=== PATIENT | female | born 1945 | race Caucasian/White ===

== ENCOUNTER → 2016-07-17 | Outpatient (REF) | payer MEDICARE | LOC: M LAB REF 16:45 | PROVIDERS: ATTEND Surgery | DX: C44.42 Squamous cell carcinoma of skin of scalp and neck (principal) ==

== ENCOUNTER → 2016-09-18 | Outpatient (REF) | payer MEDICARE | LOC: M LAB REF 16:46 | PROVIDERS: ATTEND Surgery | DX: C44.41 Basal cell carcinoma of skin of scalp and neck (principal) ==

== ENCOUNTER → 2016-09-25 | Outpatient (REF) | payer MEDICARE ==
[2016-09-25 17:42] LABS: ALBUMIN 3.7 GM/DL (3.2-5.2); ALBUMIN/GLOBULIN RATIO 1.09 (1.00-1.93); ALKALINE PHOSPHATASE 44 U/L (45-117); ALT/SGPT 28 U/L (12-78); ANION GAP 7 MEQ/L (8-16); AST/SGOT 22 U/L (15-37); BILIRUBIN,TOTAL 0.4 MG/DL (0.2-1.0); BLOOD UREA NITROGEN 16 MG/DL (7-18); CALCIUM LEVEL 8.4 MG/DL (8.8-10.2); CARBON DIOXIDE LEVEL 33 MEQ/L (21-32); CHLORIDE LEVEL 98 MEQ/L (98-107); CHOLESTEROL LEVEL 232 MG/DL (<200); CREATININE FOR GFR 0.57 MG/DL (0.55-1.02); GLOMERULAR FILTRATION RATE > 60.0 (>45); GLUCOSE, FASTING 84 MG/DL (80-110); POTASSIUM SERUM 3.9 MEQ/L (3.5-5.1); SODIUM LEVEL 138 MEQ/L (136-145); T UPTAKE 32 % (30-39); THYROXINE (T4) 6.9 UG/DL (4.5-12.0); TOTAL PROTEIN 7.1 GM/DL (6.4-8.2); TRIGLYCERIDES LEVEL 93 MG/DL (<150); URIC ACID 2.6 MG/DL (2.6-6.0)
[2016-09-25 17:51] LABS: MEAN CORPUSCULAR HEMOGLOBIN 33.3 pg (27.0-33.0); MEAN CORPUSCULAR HGB CONC 33.1 g/dl (32.0-36.5); MEAN CORPUSCULAR VOLUME 100.4 fl (80.0-96.0); PLATELET COUNT, AUTOMATED 228 k/mm3 (150-450); RED CELL DISTRIBUTION WIDTH 12.5 % (11.5-14.5); WHITE BLOOD COUNT 3.4 K/mm3 (4.0-10.0)
[2016-09-25 21:53] LABS: BASOPHILS 1 % (0-4); EOSINOPHILS 6 % (0-5)
[2016-09-25 21:54] LABS: TOXIC VACUOLATION 1+
== END ==
LOC: M LAB REF 16:42
DX: Z00.00 Encounter for general adult medical examination without abnormal findings (principal); Z79.899 Other long term (current) drug therapy

== ENCOUNTER → 2022-06-12 | Outpatient (CLI) | payer MEDICARE | LOC: M RAD 14:29 | PROVIDERS: ATTEND Physician Assistant | DX: L97.812 Non-pressure chronic ulcer of other part of right lower leg with fat layer exposed (principal) ==

== ENCOUNTER → 2022-06-25 | Outpatient (POV) | payer MEDICARE ==
[~2022-06-25] VITALS: Ht 165.1 cm; Wt 65.0 kg
[2022-06-25 13:30] VITALS: BP 148/86
== END ==
LOC: M IRPOV 13:01
PROVIDERS: ATTEND Radiology Diagnostic Radiology
DX: L97.819 Non-pressure chronic ulcer of other part of right lower leg with unspecified severity (principal); E78.5 Hyperlipidemia, unspecified; I10 Essential (primary) hypertension; R60.0 Localized edema; Z79.82 Long term (current) use of aspirin; Z82.49 Family history of ischemic heart disease and other diseases of the circulatory system; Z90.710 Acquired absence of both cervix and uterus

== ENCOUNTER → 2022-07-12 | Outpatient (REF) | payer MEDICARE | LOC: M SFHCWOUN 17:00 | PROVIDERS: ATTEND Physician Assistant | DX: L97.812 Non-pressure chronic ulcer of other part of right lower leg with fat layer exposed (principal) ==

== ENCOUNTER → 2022-07-17 | Outpatient (CLI) | payer MEDICARE | LOC: M RAD 12:46 | PROVIDERS: ATTEND Radiology Diagnostic Radiology | DX: I87.2 Venous insufficiency (chronic) (peripheral) (principal) ==

== ENCOUNTER → 2022-08-06 | Outpatient (POV) | payer MEDICARE ==
[~2022-08-06] VITALS: Ht 157.5 cm; Wt 64.5 kg
[2022-08-06 10:20] VITALS: BP 130/90
== END ==
LOC: M IRPOV 10:07
PROVIDERS: ATTEND Radiology Diagnostic Radiology
DX: L97.819 Non-pressure chronic ulcer of other part of right lower leg with unspecified severity (principal); M79.604 Pain in right leg

== ENCOUNTER → 2022-09-18 | Outpatient (REF) | payer MEDICARE | LOC: M SFHCDERM 14:15 | PROVIDERS: ATTEND Dermatology | DX: L08.0 Pyoderma (principal) ==

== ENCOUNTER → 2022-09-27 | Outpatient (REF) | payer MEDICARE | LOC: M SFHCDERM 17:25 | PROVIDERS: ATTEND Dermatology | DX: L08.0 Pyoderma (principal) ==

== ENCOUNTER → 2022-10-04 | Outpatient (REF) | payer MEDICARE | LOC: M SFHCDERM 16:36 | PROVIDERS: ATTEND Dermatology | DX: L08.0 Pyoderma (principal) ==

== ENCOUNTER → 2022-10-08 | Outpatient (REF) | payer MEDICARE | LOC: M SFHCDERM 08:31 | PROVIDERS: ATTEND Dermatology | DX: Z53.9 Procedure and treatment not carried out, unspecified reason (principal) ==

== ENCOUNTER → 2022-10-11 | Outpatient (REF) | payer MEDICARE | LOC: M SFHCDERM 17:28 | PROVIDERS: ATTEND Dermatology | DX: L08.0 Pyoderma (principal) ==

== ENCOUNTER → 2022-12-20 | Outpatient (REF) | payer MEDICARE | LOC: M SFHCDERM 17:26 | PROVIDERS: ATTEND Dermatology | DX: L08.0 Pyoderma (principal) ==

== ENCOUNTER → 2022-12-31 | Outpatient (CLI) | payer MEDICARE ==
[~2022-12-31] MED LIST: ISOVUE-370 76% 100ML VIAL As Ordered ONE
== END ==
LOC: M RAD 08:09
PROVIDERS: ATTEND Surgery Vascular Surgery
DX: I70.299 Other atherosclerosis of native arteries of extremities, unspecified extremity (principal); L97.909 Non-pressure chronic ulcer of unspecified part of unspecified lower leg with unspecified severity
CPT/HCPCS: 75635; Q9967

== ENCOUNTER → 2023-01-09 | Outpatient (REF) | payer MEDICARE | LOC: M SFHCWAGY 17:36 | PROVIDERS: ATTEND Nurse Practitioner Family | DX: Z12.4 Encounter for screening for malignant neoplasm of cervix (principal); R87.5 Abnormal microbiological findings in specimens from female genital organs | CPT/HCPCS: 87624; G0123 ==

== ENCOUNTER → 2023-02-04 | Outpatient (REF) | payer MEDICARE | LOC: M SFHCDERM 08:21 | PROVIDERS: ATTEND Dermatology | DX: L08.0 Pyoderma (principal); Z79.899 Other long term (current) drug therapy; Z53.9 Procedure and treatment not carried out, unspecified reason ==

== ENCOUNTER → 2023-02-14 | Outpatient (CLI) | payer MEDICARE | LOC: M WUC 15:56 | PROVIDERS: ATTEND Surgery | DX: L97.915 Non-pressure chronic ulcer of unspecified part of right lower leg with muscle involvement without evidence of necrosis (principal); L88 Pyoderma gangrenosum; I87.331 Chronic venous hypertension (idiopathic) with ulcer and inflammation of right lower extremity; I10 Essential (primary) hypertension; M19.90 Unspecified osteoarthritis, unspecified site; M86.161 Other acute osteomyelitis, right tibia and fibula ==

== ENCOUNTER → 2023-03-13 | Outpatient (CLI) | payer MEDICARE | LOC: M PLAIMG 13:51 | PROVIDERS: ATTEND Surgery | DX: L97.915 Non-pressure chronic ulcer of unspecified part of right lower leg with muscle involvement without evidence of necrosis (principal); L88 Pyoderma gangrenosum; I87.331 Chronic venous hypertension (idiopathic) with ulcer and inflammation of right lower extremity; I10 Essential (primary) hypertension ==

== ENCOUNTER 2023-04-01 12:09 | Outpatient (CLI) | payer MEDICARE ==
[~2023-04-01] VITALS: Ht 165.1 cm; Wt 69.0 kg
[2023-04-01] MEDS ORDERED: ACETAMINOPHEN 650MG PO PRIOR TO INFUSION PO ONE (12:30)
[2023-04-01] MEDS ORDERED: NS 1,000 ML IV SCH (12:30)
[2023-04-01] MEDS ORDERED: diphenhydrAMINE 50MG PO PRIOR TO INFUSION PO ONE (12:30)
[2023-04-01 12:45] VITALS: BP 109/55; O2SAT 96
[2023-04-01] MEDS ORDERED: inFLIXimab INJECTION 300 MG in NS 220 ML IV ONE (13:00)
[2023-04-01 13:45] VITALS: BP 160/90; O2SAT 98
[2023-04-01 14:15] VITALS: BP 158/88; O2SAT 98
== END 2023-04-01 15:45 ==
LOC: M INFU 12:09
PROVIDERS: ATTEND Dermatology
DX: L88 Pyoderma gangrenosum (principal); Z88.5 Allergy status to narcotic agent
CPT/HCPCS: 96413; 96415; J1745

== ENCOUNTER 2023-04-15 12:30 | Outpatient (CLI) | payer MEDICARE ==
[~2023-04-15] VITALS: Ht 165.1 cm; Wt 66.0 kg
[~2023-04-15 12:30] MED LIST changes: +ACETAMINOPHEN 650MG PO PRIOR TO INFUSION PO ONE; -ISOVUE-370 76% 100ML VIAL As Ordered ONE; +NS 1,000 ML IV SCH; +diphenhydrAMINE 50MG PO PRIOR TO INFUSION PO ONE; +inFLIXimab INJECTION 300 MG in NS 220 ML IV ONE
[2023-04-15 13:49] VITALS: BP 156/82; TEMP 98.4; O2SAT 100
[2023-04-15 16:00] VITALS: BP 158/62; O2SAT 98
== END 2023-04-15 16:00 | disposition home or self-care (01) ==
LOC: M INFU 12:30
PROVIDERS: ATTEND Dermatology
DX: L88 Pyoderma gangrenosum (principal); Z88.5 Allergy status to narcotic agent
CPT/HCPCS: 96413; 96415; J1745

== ENCOUNTER → 2023-04-25 | Outpatient (CLI) | payer MEDICARE | LOC: M RAD 17:02 | PROVIDERS: ATTEND Dermatology | DX: L08.0 Pyoderma (principal) ==

== ENCOUNTER → 2023-05-09 | Outpatient (CLI) | payer MEDICARE ==
[~2023-05-09] MED LIST changes: -ACETAMINOPHEN 650MG PO PRIOR TO INFUSION PO ONE; +GASTROGRAFIN SOLUTION 30ML As Ordered ONE; +ISOVUE-370 76% 100ML VIAL As Ordered ONE; -NS 1,000 ML IV SCH; -diphenhydrAMINE 50MG PO PRIOR TO INFUSION PO ONE; -inFLIXimab INJECTION 300 MG in NS 220 ML IV ONE
== END ==
LOC: M RAD 12:34
PROVIDERS: ATTEND Dermatology
DX: L08.0 Pyoderma (principal)
CPT/HCPCS: 74178; Q9963; Q9967

== ENCOUNTER 2023-05-13 15:07 | Outpatient (CLI) | payer MEDICARE ==
[~2023-05-13] VITALS: Ht 165.1 cm; Wt 66.0 kg
[2023-05-13 15:10] VITALS: BP 129/62; O2SAT 96
[2023-05-13] MEDS ORDERED: NS 1,000 ML IV SCH (16:00)
[2023-05-13] MEDS ORDERED: diphenhydrAMINE 50MG PO PRIOR TO INFUSION PO ONE (16:00)
[2023-05-13] MEDS ORDERED: ACETAMINOPHEN 650MG PO PRIOR TO INFUSION PO ONE (16:00)
[2023-05-13] MEDS ORDERED: inFLIXimab INJECTION 300 MG in NS 220 ML IV ONE (16:00)
[2023-05-13 17:51] VITALS: BP 142/78; O2SAT 96
== END 2023-05-13 18:00 | disposition home or self-care (01) ==
LOC: M INFU 15:07
PROVIDERS: ATTEND Dermatology
DX: L88 Pyoderma gangrenosum (principal); Z88.5 Allergy status to narcotic agent
CPT/HCPCS: 96413; 96415; J1745

== ENCOUNTER → 2023-06-13 | Outpatient (REF) | payer MEDICARE | LOC: M SFHCDERM 16:51 | PROVIDERS: ATTEND Dermatology | DX: R60.0 Localized edema (principal) ==

== ENCOUNTER 2023-06-24 12:20 | Outpatient (CLI) | payer MEDICARE ==
[2023-06-24 12:20] VITALS: BP 168/82; O2SAT 100
[2023-06-24] MEDS: NS 1,000 ML IV SCH (13:00)
[2023-06-24] MEDS: dexameTHASONE 20 MG IV PRIOR TO INFUSION IV ONE (13:03)
[2023-06-24] MEDS: diphenhydrAMINE 25MG PO PRIOR TO INFUSION PO ONE (13:04)
[2023-06-24] MEDS: ACETAMINOPHEN 650MG PO PRIOR TO INFUSION PO ONE (13:04)
[2023-06-24] MEDS: inFLIXimab INJECTION 300 MG in NS 220 ML IV ONE (13:15)
[2023-06-24 13:30] VITALS: BP 150/70; O2SAT 100
[2023-06-24 15:30] VITALS: BP 168/70; O2SAT 100
== END 2023-06-24 15:30 ==
LOC: M INFU 12:20
PROVIDERS: ATTEND Dermatology
DX: L88 Pyoderma gangrenosum (principal); Z88.5 Allergy status to narcotic agent
CPT/HCPCS: 96413; 96415; J1745

== ENCOUNTER 2023-09-16 12:55 | Outpatient (CLI) | payer MEDICARE ==
[~2023-09-16] VITALS: Ht 165.1 cm; Wt 69.0 kg
[2023-09-16] MEDS: dexameTHASONE 20 MG IV PRIOR TO INFUSION IV ONE (12:30)
[2023-09-16 12:55] VITALS: BP 150/76; O2SAT 100
[~2023-09-16 12:55] MED LIST changes: -GASTROGRAFIN SOLUTION 30ML As Ordered ONE; -ISOVUE-370 76% 100ML VIAL As Ordered ONE; +NS 1,000 ML IV SCH
[2023-09-16] MEDS: diphenhydrAMINE 25MG PO PRIOR TO INFUSION PO ONE (12:56)
[2023-09-16] MEDS: ACETAMINOPHEN 650MG PO PRIOR TO INFUSION PO ONE (12:56)
[2023-09-16] MEDS: inFLIXimab INJECTION 300 MG in NS 220 ML IV ONE (13:43)
[2023-09-16 14:34] VITALS: BP 120/80; O2SAT 100
[2023-09-16 15:50] VITALS: BP 134/70; O2SAT 99
== END 2023-09-16 16:05 | disposition home or self-care (01) ==
LOC: M INFU 12:55
PROVIDERS: ATTEND Dermatology
DX: L88 Pyoderma gangrenosum (principal); Z88.5 Allergy status to narcotic agent
CPT/HCPCS: 96413; 96415; J1745

== ENCOUNTER → 2023-10-02 | Outpatient (REF) | payer MEDICARE | LOC: M SFHCDERM 16:47 | PROVIDERS: ATTEND Dermatology | DX: L97.909 Non-pressure chronic ulcer of unspecified part of unspecified lower leg with unspecified severity (principal) ==

== ENCOUNTER → 2024-01-08 | Outpatient (REF) | payer MEDICARE | LOC: M SFHCDERM 15:46 | PROVIDERS: ATTEND Dermatology | DX: L08.0 Pyoderma (principal) ==

== ENCOUNTER → 2025-03-15 | Outpatient (REF) | payer MEDICARE | LOC: M SFHCDERM 15:20 | PROVIDERS: ATTEND Dermatology | DX: L08.0 Pyoderma (principal) ==